=== PATIENT | female | born 1990 | race Caucasian/White ===

== ENCOUNTER 2021-09-15 15:05 | Emergency (ER) | payer SELFPAY ==
[2021-09-15 15:07] VITALS: BP 125/82; PULSE 85; RESP 18; TEMP 36.6; O2SAT 96; BMI 30.9
--- NOTE | 2021-09-15 15:27 | EX.ED.VIS.HA ---
HPI History of Present Illness Chief Complaint: Headache Detail of Chief Complaint: Headache that started a week ago. Informant: patient Narrative Narrative: Patient presents to the emergency department chief complaint of a headache that start about a week ago. She states that initially was intermittent and would be worse if she bent over or coughed. Headache became more continuous over the last 5 days and describes it more to the back of her head. She rates it about 6 or 7 out of 10. She denies any nausea or vomiting or photophobia. Patient is 32 weeks and is G5, P4. She denies any falls or head injuries. She had cold symptoms a few weeks ago. Patient has been taking Tylenol and not getting any relief of her headache. Patient does have history of prior migraines but this feels different. Patient states that she recently returned from [place] as well and she noted that she had superficial blood clot in the right leg and her check writing machine operator prescribed some herbal enzymes to try to break it down. Today she had some intermittent twinges of chest discomfort. She denies any chest pain currently or shortness of breath currently. PFSH PFSH Medical History no medical history Home Medications 1 cp PO/SL DAILY 09/15/21 [History Last Taken Unknown] hydrocodone-acetaminophen 1 tab PO Q4H PRN PRN 2 Days #10 tablet 09/15/21 [Rx Last Taken Unknown] Allergy/AdvReac Type Severity Reaction Status Date / Time egg AdvReac Other Verified 09/15/21 15:13 Family History no significant family his Surgical History no surgical history Social History Smoking Status: Never smoker ROS ROS ED Constitutional Constitutional ED: Reports systems reviewed and no addt'l complaints, except as documented; Denies body ache(s), change in weight or chills Eyes Eyes: Denies acute decrease in peripheral vision, change in vision, double vision or loss of vision ENT ENT ED: Reports none; Denies ear pain, lip swelling, loss taste/smell, neck pain, otalgia or sore throat Cardiovascular Cardiovascular: Reports none and chest pain; Denies abdominal pain, chest pain with activity, leg edema, lightheadedness, palpitations, rapid heart rate or syncope Respiratory/Chest Respiratory/Chest: Reports none; Denies change in mental status, dry cough, dyspnea, hemoptysis, shortness of breath at rest or shortness of breath with exertion Gastrointestinal Gastrointestinal: Reports none; Denies abdominal pain, change in stool character, diarrhea, hematemesis, hematochezia, melena, rectal bleeding or vomiting Genitourinary Genitourinary ED: Reports none; Denies abdominal discomfort, anuria, dysuria, genital pain or polyuria Musculoskeletal Musculoskeletal: Reports none; Denies arthralgias, back pain, difficulty walking, extremity pain, muscle weakness or myalgias Integumentary Reports none; Denies abscess or rash Neurologic Neurologic: Reports none and headache(s); Denies abnormal gait, confusion, focal weakness, frequent falls, loss of vision, numbness, paresthesias, radicular pain, vertigo or weakness Psychiatric Psychiatric: Reports systems reviewed and no addt'l complaints, except as documented and none; Denies behavioral changes, confusion, difficulty concentrating, hallucinations, suicidal ideation, tactile hallucinations or visual hallucinations Endocrine Endocrinology: Denies none, cold intolerance, excessive sweating, fatigue or heat intolerance Hematologic/Lymphatic Hematologic/Lymphatic: Reports none; Denies anemia, easy bleeding or easy bruising Allergic/Immunologic Allergic/Immunologic ED: Denies as per HPI, none, lip swelling, mouth swelling, throat swelling, tongue swelling or hives EXAM Physical Exam Const Vital Signs: 09/15/21 15:07 09/15/21 17:14 Temperature 97.8 F Temperature Source Temporal Pulse Rate 85 79 Respiratory Rate 18 18 Blood Pressure 125/82 H Blood Pressure Mean 96 Pulse Ox 96 97 Oxygen Delivery Method Room Air Room Air Positive well nourished and well developed General Appearance ED: well developed and NAD HEENT Reports TM's clear and moist mucous membranes normocephalic and atraumatic; Negative for trauma or tenderness Tympanic Membrane ED: Yes TM's clear Eyes PERRL and EOMs intact bilaterally General Eye ED: Negative for pale conjunctiva or scleral icterus Neck no lymphadenopathy, supple and no JVD General: Negative for tenderness Chest Wall inspection of chest normal and palpation of chest normal Chest: Negative for tenderness Resp normal respiratory effort and clear to auscultation bilaterally Effort and Inspection: Negative for respiratory distress or pain with movement Auscultation: Negative for rhonchi, wheezes or diminished lung sounds Cardio regular rate, regular rhythm, S1 normal heart sound, S2 normal heart sound and no murmurs Peripheral Pulses: pulses 2+ throughout GI normal to inspection, nondistended, normoactive bowel sounds, soft to palpation, non-tender, non-distended and no masses Back/Spine no CVA tenderness and no thoracic nor lumbar tenderness Extremity normal to inspection General Extremety ED: Negative for edema General Extremity: Negative for edema Neuro oriented x3, CN's II-XII intact bilaterally, no sensory deficits noted and gait normal Neuro Narrative: Finger-nose and heel childs testing within normal limits, negative Romberg, negative pronator drift, fundi benign Sensorium / Orientation: awake, alert, oriented to person, oriented to place and oriented to time Motor Exam: strength 5/5 throughout and strength abnormal Psych mental status grossly normal Skin no rashes or lesions noted and no wounds MDM MDM MDM Narrative Medical decision making narrative: IV line established. Patient was given Reglan and Benadryl and had minimal relief of her headache with that. Patient had a CTA of the brain that did not show any significant findings and showed patent dural venous sinuses. Patient had a CT of the chest that was negative for PE. At this point she had a negative COVID test. Etiology of her headache unclear. No evidence for preeclampsia. I will have her come back tomorrow to get an ultrasound of her right lower extremity to rule out DVT. Patient will be given a prescription for few [place] for pain. She is advised to follow-up with her primary care physician within next 3 to 5 days. Lab Data Attestation: I reviewed the patient's lab results. Labs: Laboratory Results - last 24 hr 09/15/21 09/15/21 09/15/21 16:03 16:03 16:03 WBC 10.8 RBC 3.51 L Hgb 10.3 L Hct 30.8 L MCV 87.7 MCH 29.3 MCHC 33.4 RDW Std Deviation 40.6 RDW Coeff of Radha 12.7 Plt Count 276 MPV 9.8 Immature Gran % (Auto) 0.600 Neut % (Auto) 75.3 H Lymph % (Auto) 17.4 L Frontier % (Auto) 5.7 Eos % (Auto) 0.8 Baso % (Auto) 0.2 Absolute Neuts (auto) 8.1 H Absolute Lymphs (auto) 1.88 Nucleated RBC % 0 D-Dimer Quant (PE/DVT) 1.04 H* Sodium 138 Potassium 3.4 L Chloride 108 H Carbon Dioxide 25.0 Anion Gap 5 BUN 9 Creatinine 0.67 Estim Creat Clear Calc 104.09 Est GFR (MDRD) Af Amer 131 Est GFR (MDRD) Non-Af 108 BUN/Creatinine Ratio 13.5 Glucose 100 Calcium 8.7 Total Bilirubin 0.30 AST 10 L ALT 13 Alkaline Phosphatase 81 Total Protein 6.5 Albumin 2.4 L Globulin 4.1 Albumin/Globulin Ratio 0.6 L Urine Color Urine Clarity Urine pH Ur Specific Ruth Urine Protein Urine Glucose (UA) Urine Ketones Urine Occult Blood Urine Nitrite Urine Bilirubin Urine Urobilinogen Ur Leukocyte Esterase Urine RBC Urine WBC Ur Squamous Epith Cells Urine Bacteria Urine Mucus 09/15/21 16:03 WBC RBC Hgb Hct MCV MCH MCHC RDW Std Deviation RDW Coeff of Radha Plt Count MPV Immature Gran % (Auto) Neut % (Auto) Lymph % (Auto) Frontier % (Auto) Eos % (Auto) Baso % (Auto) Absolute Neuts (auto) Absolute Lymphs (auto) Nucleated RBC % D-Dimer Quant (PE/DVT) Sodium Potassium Chloride Carbon Dioxide Anion Gap BUN Creatinine Estim Creat Clear Calc Est GFR (MDRD) Af Amer Est GFR (MDRD) Non-Af BUN/Creatinine Ratio Glucose Calcium Total Bilirubin AST ALT Alkaline Phosphatase Total Protein Albumin Globulin Albumin/Globulin Ratio Urine Color Yellow Urine Clarity Clear Urine pH 6.0 Ur Specific Ruth 1.010 Urine Protein Negative Urine Glucose (UA) Normal Urine Ketones Negative Urine Occult Blood Negative Urine Nitrite Negative Urine Bilirubin Negative Urine Urobilinogen Normal Ur Leukocyte Esterase Negative Urine RBC 0 SEEN Urine WBC 0 SEEN Ur Squamous Epith Cells 0-5 SEEN Urine Bacteria RARE Urine Mucus 0 SEEN Radiography Diagnostic Testing: Clinical Impression(s) from Imaging Studies Chest CTA 09/15/21 16:42 IMPRESSION: 1. No pulmonary embolism 2. Normal chest. Electronically Signed: Delmi Edgar MD at 18:40 EST Tel , Service support , Head/Neck CTA 09/15/21 16:42 IMPRESSION: 1. Normal CT brain. Electronically Signed: Delmi Edgar MD at 18:38 EST Tel , Service support , Discharge Plan Triage Chief Complaint: Headache ED Provider: Amada Su Dx/Rx/DC Orders Clinical Impression: Headache, Leg swelling Instructions: ED Headache Unspecified, ED Peripheral Edema, Unilateral Prescriptions: New hydrocodone-acetaminophen [hydrocodone-acetaminophen] 1 TABLET tablet 1 tab PO Q4H PRN PRN (Reason: Pain) 2 Days Qty: 10 RF: 0 No Action 1 cp PO/SL DAILY RF: 0 Primary Care Provider: Mehran Edwards Referrals: Mehran Edwards DO [Primary Care Provider] - 3-5 Days Disposition Disposition: Home, Self Care
[2021-09-15] MEDS: DiphenhydrAMINE 50 MG/ML Syringe 25 MG IV (16:01)
[2021-09-15] MEDS: Metoclopramide 10 MG/2 ML Vial IV (16:01)
[2021-09-15] MEDS: 0.9% Normal Saline 1,000 ML 1000 ML IV (16:01)
[2021-09-15 16:09] LABS: Mucous, Urine 0 SEEN /hpf (<or=2+); Red Blood Cells-Urine 0 SEEN /hpf (0-5); White Blood Cells 0 SEEN /hpf (0-5)
[2021-09-15 16:12] LABS: Color, Urine Yellow (Yellow); Glucose, Dipstick Normal (Normal); Ketone-Dipstick Negative (Negative); Leukocyte Esterase-Dipstick Negative /ul (Negative); Nitrite-Dipstick Negative (Negative); Occult Blood-Urine Negative /ul (Negative); Protein-Dipstick Negative (Negative); Urine Bilirubin Dipstick Negative (Negative); Urine Clarity Clear (Clear); Urine Urobilinogen Normal (Normal)
[2021-09-15 16:16] LABS: Absolute Lymphocyte Count 1.88 X10^3/uL (0.83-4.51); Absolute Neutrophil Count 8.1 X10^3/uL (2.0-7.7); Basophil# 0.02 X10^3/uL; Basophil% 0.2 % (0-1); Eosinophil# 0.09 X10^3/uL; Eosinophils% 0.8 % (0-5); Hematocrit 30.8 % (37-47); Hemoglobin 10.3 g/dL (12.0-15.0); Lymphocyte # 1.88 X10^3/ul (0.83-4.51); Lymphocyte % 17.4 % (19-41); Mean Corp Hgb Conc 33.4 g/dL (32-36); Mean Corpuscular Hgb 29.3 pg (27.0-32.0); Mean Corpuscular Volume 87.7 fL (81-99); Mean Platelet Vol. 9.8 fl (6.2-12.0); Monocyte# 0.62 X10^3/uL; Monocyte% 5.7 % (0-10); NRBC Flagged by Analyzer 0 % (0-5); Neutrophil # 8.14 X10^3/uL (2.7-7.7); Neutrophil % 75.3 % (47-70); Platelet Count 276 K/mm3 (150-450); RBC Distribution Width CV 12.7 % (11.6-14.6); RBC Distribution Width SD 40.6 fl (35.1-43.9); Red Blood Count 3.51 M/mm3 (4.2-5.4); White Blood Count 10.8 K/mm3 (4.4-11.0)
[2021-09-15 16:19] LABS: Bacteria RARE /hpf (None Seen); Squamous Epithelial Cells - UA 0-5 SEEN /hpf (5-10)
[2021-09-15 16:27] LABS: ALB/GLOB Ratio 0.6 RATIO (0.9-2.4); AST(SGOT) 10 U/L (15-37); Alanine Aminotransfer ALT/SGPT 13 U/L (13-56); Albumin, Serum 2.4 g/dL (3.2-5.0); Alkaline Phosphatase 81 U/L (45-117); Anion Gap 5 (5-15); BUN 9 mg/dL (7-18); BUN/Creat Ratio 13.5 RATIO (10-20); Calcium,Total 8.7 mg/dL (8.5-10.1); Chloride 108 mmol/L (98-107); Creatinine, Serum 0.67 mg/dL (0.55-1.02); EST Glomerular Filtration Rate 108 mL/min (>60); Est Glom Filt Rate - Afr Amer 131 mL/min (>60); Estimated Creatinine Clearance 104.09 ml/min; Globulin 4.1 g/dL (2.2-4.2); Glucose 100 mg/dL (74-106); Potassium 3.4 mmol/L (3.5-5.1); Protein, Total 6.5 g/dL (6.4-8.2); Sodium Level 138 mmol/L (136-145)
[2021-09-15 16:39] LABS: D-Dimer Quantitative (DVT/PE) 1.04 FEU/ug/m (0.27-0.49)
--- NOTE | 2021-09-15 16:42 | CT_ITS ---
STUDY: CTA HEAD AND NECK WITH CONTRAST REASON FOR EXAM: Female, 31 years old. headache RADIATION DOSAGE (If Supplied By Facility): CTDIvol = ( 27.44 ) mGy, DLP = ( 2602.80 ) mGycm TECHNIQUE: CT angiography was performed with a multi-detector CT scanner. Data acquisition was obtained from the skull base through the vertex following intravenous administration of IV 100mL [id number]-370. MIP images were reconstructed from the axial data set. Post-processing of the angiographic images was performed, with multiplanar reformation and 3D reconstruction. Individualized dose optimization techniques were used for this CT. COMPARISON: No relevant priors. FINDINGS: Normal bilateral petrous carotid arteries. Normal right cavernous carotid artery with a normal supraclinoid bifurcation. Normal left cavernous carotid artery with a normal supraclinoid bifurcation. Normal right A1 segments of the anterior cerebral artery. Normal left A1 segments of the anterior cerebral artery. Normal intact anterior communicating artery (ACOM). Normal bilateral A2 segments of the anterior cerebral arteries. Normal right M1 and M2 segments of the middle cerebral arteries, with a normal M1 bifurcation. Normal left M1 and M2 segments of the middle cerebral arteries, with a normal M1 bifurcation. Posterior commuting arteries are small bilaterally. Normal bilateral vertebral arteries. Normal basilar artery with a normal basilar bifurcation. The visualized bilateral superior cerebellar (SCA) arteries are normal. Normal bilateral P1, P2 and visualized P3 segments of the posterior cerebral arteries. There is no demonstrated aneurysm of the [place] of [place]. There is no demonstrated abnormality of the visualized brain. AORTIC ARCH: Normal visualized aortic arch. Normal origins of the brachiocephalic, left common carotid, and left subclavian arteries. RIGHT CAROTID ARTERIES: Normal right common carotid artery (CCA). Normal right common carotid bulb. Normal origin of the right internal carotid (ICA) artery without a hemodynamically significant stenosis. Normal visualized cervical portion of the right internal carotid artery. Normal origin of the right external carotid artery (ECA). LEFT CAROTID ARTERIES: Normal left common carotid artery (CCA). Normal left common carotid bulb. Normal origin of the left internal carotid (ICA) artery without a hemodynamically significant stenosis. Normal visualized cervical portion of the left internal carotid artery. Normal origin of the left external carotid artery (ECA). VERTEBRAL ARTERIES: Normal bilateral vertebral arteries. Dural venous sinuses are patent. IMPRESSION: 1. Normal cervical arteries. 2. Normal intracranial arteries. 3. Patent dural venous sinuses. Electronically Signed: Delmi Edgar MD at 18:38 EST Tel , Service support , STUDY: CT BRAIN WITHOUT CONTRAST REASON FOR EXAM: Female, 31 years old. Headache shortness of breath RADIATION DOSAGE (If Supplied By Facility): CTDIvol = ( ) mGy, DLP = ( ) mGycm TECHNIQUE: Transaxial CT imaging of the brain was performed without administration of intravenous contrast material. Individualized dose optimization techniques were used for this CT. COMPARISON: No relevant priors. FINDINGS: Brain parenchyma is without focal lesions, mass effect, acute intracranial hemorrhage, extra parenchymal fluid collections, hydrocephalus or herniation. The skull is intact. CT/CTA Head AND Neck W/ Contrast IMPRESSION: 1. Normal CT brain. Electronically Signed: Delmi Edgar MD at 18:38 EST Tel , Service support ,
--- NOTE | 2021-09-15 16:42 | CT_ITS ---
STUDY: CTA CHEST REASON FOR EXAM: Female, 31 years old. Elevated d-dimer headache shortness of breath RADIATION DOSAGE (If Supplied By Facility): CTDIvol = ( 27.44 ) mGy, DLP = ( 2602.80 ) mGycm TECHNIQUE: The examination was performed with the intravenous administration of IV 100mL Isovue-370. Post-processing of the angiographic images was performed, with multiplanar reformation and 3D reconstruction. Individualized dose optimization techniques were used for this CT. COMPARISON: None. FINDINGS: There is no acute or chronic pulmonary embolism. Aorta is of normal caliber. Lungs are clear. There is no pneumothorax, pulmonary edema or pleural effusions. Mediastinal contents are normal with benign calcified lymph nodes. Osseous structures are intact. Abdominal structures are unremarkable. CT/CTA Chest W/WO Contrast IMPRESSION: 1. No pulmonary embolism 2. Normal chest. Electronically Signed: Delmi Edgar MD at 18:40 EST Tel , Service support ,
[2021-09-15 17:14] VITALS: PULSE 79; RESP 18; O2SAT 97
[2021-09-15] MEDS: 0.9% Normal Saline 1,000 ML 150 ML IV (17:29)
== END 2021-09-15 19:05 | disposition home or self-care (01) ==
PROVIDERS: Emergency Provider Emergency Medicine; PCP Family Medicine; Visit Provider Emergency Medicine
DX: O99.891 Other specified diseases and conditions complicating pregnancy (principal); R51.9 Headache, unspecified; M79.89 Other specified soft tissue disorders; Z3A.32 32 weeks gestation of pregnancy
CPT/HCPCS: 70496; 70498; 71275; 80053; 81001; 85025; 85379; 87426; 96361; 96374; 96375; 99283; J7030; Q9967

== ENCOUNTER → 2023-11-13 | Outpatient (CLI) | payer SELFPAY ==
--- NOTE | 2023-11-13 14:02 | VDLE_ITS ---
Reason For Study: Right leg pain RIGHT CFV is compressible, spontaneous, phasic, competent and demonstrates normal augmentation. FV is compressible, spontaneous, phasic, competent and demonstrates normal augmentation. POP V is compressible, spontaneous, phasic, competent and demonstrates normal augmentation. T/P Trunk is compressible. PTV is compressible. RT PerV is compressible. SFJ is competent and measures 0.58 x 0.71 cm. GSV proximal thigh measures 0.31 x 0.34 cm. GSV at knee measures 0.18 x 0.18 cm. GSV INCOMPETENT throughout for greater than 0.5 seconds. ASV mid thigh is INCOMPETENT for greater than 0.5 seconds and measures 0.22 x 0.23 cm. SSV proximal calf is competent and measures 0.16 x 0.17 cm. Varicose vein of concern at lateral mid calf extends up to lateral mid thigh. Procedure This is a venous duplex using B-mode, color flow and spectral Doppler. Exam performed in department. VL/Venous Duplex US, Unilateral Interpretation Summary Deep veins of the right lower extremity are patent and compressible segmentally . There is no evidence of right lower extremity deep vein thrombosis. The right great sapheno us vein appears patent and compressible segmentally. Positive for reflux in the right great saphenous vein, mid thigh accessory saph enous vein. Ordering Physician: Chandrika Garcia Referring Physician: Mehran Edwards Performed By: Renetta Barakat RVT
== END | disposition home or self-care (01) ==
PROVIDERS: PCP Family Medicine; Referring Provider Physician Assistant; Visit Provider Physician Assistant
DX: I83.90 Asymptomatic varicose veins of unspecified lower extremity (principal)
CPT/HCPCS: 93971

== ENCOUNTER 2024-06-29 11:11 | Day surgery (SDC) | payer SELFPAY ==
[2024-06-28 14:23] VITALS: BMI 29.3
[2024-06-29 12:07] LABS: Internal QC Validated? YES +Cl - CLEAR BKGD; Pregnancy, Serum, hCG Quali. NEGATIVE Negative
--- OUTSIDE RECORDS SUMMARY | 2024-06-29 12:12 | XMS RPT_ITS | CCD ---
Author Organization [facility] CliniSywv Care Team Providers Care Director Of The [facility] Name Role Phone HAMLET SCHAEFER Admitting Unavailable HAMLET SCHAEFER Primary Care Unavailable HAMLET SCHAEFER Attending Unavailable LINETTE ANTHONY Consulting Unavailable PROVIDER, UNKNOWN Consulting Unavailable ANAMARIA LR MD Attending Unavailable LINETTE ANTHONY Consulting Unavailable ANAMARIA LR MD Admitting Unavailable ANAMARIA LR MD Primary Care Unavailable PROVIDER, UNKNOWN Consulting Unavailable Problems Problem Classification Problem Date Documented Da te Episodic/Chronic Other upper respiratory infections (3 sources) Chronic maxillary sinusitis; Translations: [Chronic maxillary sinusitis] Onset: 11-05-2022 Chronic Results Test Name Value Interpretation Reference Range Facil ity CT SINUSES W/O CONTRASTon CT SINUSES W/O CONTRAST [address] [address] Patient: SOLOMON PRITCHETT Phone#: : 1990 Age: 32 Gender: F Pt. Type: Out Account: [id number] Location: 052 Ordering: HAMLET SCHAEFER Exam Date: 11/05/2022/8:12 Family Phys: Charge Code: 771243 Physician: Bollinger Order #: [id number] Dose#: 18.00 PROCEDURE: CT SINUSES WITHOUT CONTRAST COMPARISON: None. INDICATIONS: Chronic maxillary sinusitis. TECHNIQUE: CT images were created without intravenous contrast. All CT scans at this facility use dose modulation, iterative reconstruction, and/or weight based dosing when appropriate to reduce radiation dose to as low as reasonably achievable. IV CONTRAST: No IV contrast used,0ml TOTAL DOSE: 18.00 CTDIvol(mGy) FINDINGS: MAXILLARY SINUSES: Mild mucosal thickening in the maxillary sinuses. No fluid. Infundibula are patent. 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 ETHMOID SINUSES: Normal. No significant mucosal thickening or fluid. Fovea ethmoidali and lamina papyracea are symmetric and intact. SPHENOID SINUSES: Normal. No significant mucosal thickening or fluid. Sphenoethmoidal recesses are patent. No bony dehiscence. FRONTAL SINUSES: Normal. No significant mucosal thickening or fluid. Frontal recesses are patent. No anomalous frontal air cells. NASAL FOSSA: Rightward nasal septal deviation and rightward nasal septal spur. Left middle turbinate deyanira bullosa. No paradoxical turbinates are identified. OTHER: Normal. Limited views of the skull base and orbits are unremarkable. CONCLUSION: 1. Mild mucosal thickening maxillary sinuses 2. Bilateral Mel air cells 3. Rightward nasal septal deviation and small rightward nasal septal spur 4. 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 Type: Out Account: [id number] [place] [facility] [place] Ordering: HAMLET SCHAEFER Exam Date: 11/05/2022/8:12 Family Phys: Charge Code: [id number] Physician: Bollinger Order #: [id number] Dose#: 18.00 Dictated by: Talisha Freeman MD on 11/05/2022 at 12:45 Approved by: Talisha Freeman MD on 11/05/2022 at 12:58 Normal [facility] URINALYSISon 08-13-2022 Amorphous NONE Normal [facility] Comment on above: Performed By: #### 2 84032 #### [facility],[address] [place] [address] 35176 Bacteria TRACE Normal [facility] Comment on above: Performed By: #### 2 86291 #### [facility],[address] [place] [address] 84468 Bilirubin Ql (U) Negative Normal NORMAL: NEGATIVE [facility] Comment on above: Performed By: #### 2 93627 #### [facility],[address] [place] [address] 13271 Casts NONE Normal [facility] Comment on above: Performed By: #### 2 64548 #### [facility],[address] [place] [address] 17952 Clarity (U) CLEAR Normal NORMAL: CLEAR [facility] Comment on above: Performed By: #### 2 32986 #### [facility],[address] [place] [address] 89515 Color (U) p.yel Normal NORMAL: YELLOW [facility] Comment on above: Performed By: #### 2 36755 #### [facility],[address] [place] [address] 28245 Crystals LM Nom (Urine sed) NONE Normal [facility] Comment on above: Performed By: #### 2 18278 #### [facility],[address] [place] [address] 18420 Epi Cells OCC Normal [facility] Comment on above: Performed By: #### 2 47009 #### [facility],[address] [place] [address]102 Glucose Ql (U) NORM Normal NORMAL: NORMAL [facility] Comment on above: Performed By: #### 2 70276 #### [facility],[address] [place] [address] 25527 Hemoglobin Ql (U) 10 Abnormal NORMAL: NEGATIVE [facility] Comment on above: Performed By: #### 2 66622 #### [facility],[address] [place] [address] 14253 Ketone Negative Normal NORMAL: NEGATIVE [facility] Comment on above: Performed By: #### 2 48923 #### [facility],[address] [place] [address] 82585 Leukocytes 100 Abnormal NORMAL: NEGATIVE [facility] Comment on above: Performed By: #### 2 90455 #### [facility],[address] [place] [address] 80020 Mucous NONE Normal [facility] Comment on above: Performed By: #### 2 43970 #### [facility],[address] [place] [address] Nitrite Ql (U) Negative Normal NORMAL: NEGATIVE [facility] Comment on above: Performed By: #### 2 65480 #### [facility],[address] [place] [address] pH (U) 5 [pH] Normal NORMAL: 5.0-8.0 [facility] Comment on above: Performed By: #### 2 78307 #### [facility],[address] [place] [address] Protein Ql (U) 30 Abnormal NORMAL: NEGATIVE [facility] Comment on above: Performed By: #### 2 09756 #### [facility],[address] [place] [address] Rbc NONE Normal 0-3/hpf [facility] Comment on above: Performed By: #### 2 66504 #### [facility],[address] [place] [address] Sp Caroline 1.020 Normal NORMAL: 1.010-1.030 [facility] Comment on above: Performed By: #### 2 85903 #### [facility],[address] [place] [address] Specimen Type Clean catch Normal [facility] Comment on above: Performed By: #### 2 95048 #### [facility],[address] [place] [address] Urinalysis dipstick W Reflex Microscopic panel (U) SEE BELOW Normal [facility] Comment on above: Result Comment: MICR OSCOPIC Performed By: #### 2 31673 #### [facility],[address] [place], [place] [id number] Urobilinog NORM Normal NORMAL: NORMAL [facility] Comment on above: Performed By: #### 2 58371 #### [facility],[address] [place] [address] 21865 Wbc 6-10 Normal 0-5/hpf [facility] Comment on above: Performed By: #### 2 25318 #### [facility],[address] [place] [address] 72825 Yeast NONE Normal [facility] Comment on above: Performed By: #### 2 32467 #### [facility],[address] [place] [address] 53760 URINE CULTURE [CCL]on 2021 Bacteria identified Cx Nom (U) URCUL See Results Below See Below CULTURE, URINE ESCHERICHIA COLI >=100,000 CFU/ml Escherichia coli CLSI breakpoints for therapy of uncomplicated UTIs due to E. coli, K. pneumoniae ORGANISM: ESCHERICHIA COLI ANTIBIOTIC MISBAH DILUTN MISBAH INTERP Ampicillin >=32 Resistant Ampicillin/Sulbact >=32 Resistant Cefazolin 16 Susceptible Cefepime <=1 Susceptible Ceftriaxone <=1 Susceptible Ciprofloxacin <=0.25 Susceptible Ertapenem <=0.5 Susceptible Gentamicin <=1 Susceptible Meropenem <=0.25 Susceptible Nitrofurantoin <=16 Susceptible Piperacillin/Tazobac <=4 Susceptible Tobramycin <=1 Susceptible Trimeth sulfameth <=20 Susceptible This test was developed and its performance characteristics determined by the [facility] [place] [facility] It has not been cleared or approved by the FDA. [facility] is regulated under CLIA as qualified to perform high-complexity testing. This test is used for clinical purposes. It should not be regarded as investigational or for research. SOURCE: URINE [facility] [address] [place] [address] Srinath Conklin III, M.D. [id number] Normal [facility] Comment on above: Performed By: #### 2 60172 #### [address] [address] CBC (INCLUDES DIFF/PLT)on Basophils (Bld) [#/Vol] 0.008 10*3/uL Normal 0-200 [facility] Comment on above: Performed By: #### 6 399 #### [facility] [place] [address] Machine Joint Cutter: Joseph Barnard MD Basophils/100 WBC (Bld) 0.1 % Normal [facility] Comment on above: Performed By: #### 6 399 #### [facility] [place] [address] Machine Joint Cutter: Joseph Barnard MD COMMENT(S) Normal [facility] Comment on above: Result Comment: Revi ew of peripheral smear confirms automated results. Performed By: #### 6 399 #### [facility] [place] [address] Machine Joint Cutter: Joseph Barnard MD Eosinophils (Bld) [#/Vol] 0.108 10*3/uL Normal 15-500 [facility] Comment on above: Performed By: #### 6 399 #### [facility] [place] [address] Machine Joint Cutter: Joseph Barnard MD Eosinophils/100 WBC (Bld) 1.4 % Normal [facility] Comment on above: Performed By: #### 6 399 #### [facility] [place] [address] Machine Joint Cutter: Joseph Barnard MD Erythrocyte distribution width (RBC) [Ratio] 13.2 % Normal 11.0-15.0 [facility] Comment on above: Performed By: #### 6 399 #### [facility] [place] [address] Machine Joint Cutter: Joseph Barnard MD Hematocrit (Bld) [Volume fraction] 33.5 % Low 35.0-45.0 [facility] Comment on above: Performed By: #### 6 399 #### [facility] [place] [address] Machine Joint Cutter: Joseph Barnard MD Hemoglobin (Bld) [Mass/Vol] 10.6 g/dL Low 11.7-15.5 [facility] Comment on above: Performed By: #### 6 399 #### [facility] [place] [address] Machine Joint Cutter: Joseph Barnard MD Lymphocytes (Bld) [#/Vol] 1.663 10*3/uL Normal 850-3900 [facility] Comment on above: Performed By: #### 6 399 #### [facility] [place] [address] Machine Joint Cutter: Joseph Barnard MD Lymphocytes/100 WBC (Bld) 21.6 % Normal [facility] Comment on above: Performed By: #### 6 399 #### [facility] [place] [address] Machine Joint Cutter: Joseph Barnard MD MCH (RBC) [Entitic mass] 28.3 pg Normal 27.0-33.0 [facility] Comment on above: Performed By: #### 6 399 #### [facility] [place] [address] Machine Joint Cutter: Joseph Barnard MD MCHC (RBC) [Mass/Vol] 31.6 g/dL Low 32.0-36.0 [facility] Comment on above: Performed By: #### 6 399 #### [facility] [place] [address] Machine Joint Cutter: Joseph Barnard MD MCV (RBC) [Entitic vol] 89.6 fL Normal 80.0-100.0 [facility] Comment on above: Performed By: #### 6 399 #### [facility] [place] [address] Machine Joint Cutter: Joseph Barnard MD Monocytes (Bld) [#/Vol] 0.347 10*3/uL Normal 200-950 [facility] Comment on above: Performed By: #### 6 399 #### [facility] [place] [address] Machine Joint Cutter: Joseph Barnard MD Monocytes/100 WBC (Bld) 4.5 % Normal [facility] Comment on above: Performed By: #### 6 399 #### [facility] [place] [address] Machine Joint Cutter: Joseph Barnard MD Neutrophils (Bld) [#/Vol] 5.575 10*3/uL Normal 0501-5212 [facility] Comment on above: Performed By: #### 6 399 #### [facility] of [address], [address] [place] [address] Machine Joint Cutter: Joseph Barnard MD Neutrophils/100 WBC (Bld) 72.4 % Normal [facility] Comment on above: Performed By: #### 6 399 #### [facility] [place] [address] Machine Joint Cutter: Joseph Barnard MD Platelet mean volume (Bld) [Entitic vol] 10.3 fL Normal 7.5-12.5 [facility] Comment on above: Performed By: #### 6 399 #### [facility] [place] [address] Machine Joint Cutter: Joseph Barnard MD Platelets (Bld) [#/Vol] 302 10*3/uL Normal 140-400 [facility] Comment on above: Performed By: #### 6 399 #### [facility] of [address], [address] [place] [address] Machine Joint Cutter: Joseph Barnard MD RBC (Bld) [#/Vol] 3.74 10*6/uL Low 3.80-5.10 [facility] Comment on above: Performed By: #### 6 399 #### [facility] [place] [address] Machine Joint Cutter: Joseph Barnard MD WBC (Bld) [#/Vol] 7.7 10*3/uL Normal 3.8-10.8 [facility] Comment on above: Performed By: #### 6 399 #### [facility] of [address], [address] [place], [place] [address] Machine Joint Cutter: Joseph Barnard MD Encounters Encounter Date Encounter Type Care Provider Facility Start: 11-05-2022 End: 11-05-2022 ambulatory HAMLET SCHAEFER [facility] Start: 08-13-2022 End: 08-13-2022 ambulatory ANAMARIA LR [facility] Procedures Date Procedure Procedure Detail Performing Clinician Start: 08-13-2022 Urinalysis HAMLET GUY Comment on above: Result Comment: URIN ALYSIS Performed By: #### 2 61415 #### [facility],[address] [place] [address] Payers Date Payer Category Payer Unknown [id number] Unknown Summary Purpose Family History No Family History Records FoundNo Family History Records Found Advance Directives No Advanced Directives Records FoundNo Advanced Directives Records Found Additional Source Comments INFORMATION SOURCE (unrecogn ized section and content) DATE CREATED AUTHOR 07/07/2021 [facility] DATE CREATED AUTHOR AUTHOR'S ORGANIZ ATION 11/06/2022 [facility] FOR RECORDS PERTAINING TO PATIENTS WHO ARE OR HAVE BEEN ENROLLED IN A CHEMICAL DEPENDENCY/SUBSTANCEABUSE PROGRAM, SOME INFORMATION MAY BE OMITTED. This clinical summary was aggregated from multiple sources. Caution should be exercised in using it in the provision of clinical care. This summary normalizes information from multiple sources, and as a consequence, information in this document may materially change the coding, format and clinical context of patient data. In addition, data may be omitted in some cases. CLINICAL DECISIONS SHOULD BE BASED ON THE PRIMARY CLINICAL RECORDS. [facility] [employer] provides no warranty or guarantee of the accuracy or completeness of information in this document.
--- NOTE | 2024-06-29 12:29 | PCM.HP.STD ---
HPI - General HPI Narrative SOLOMON PRITCHETT, is a 34 F who presents for symptomatic varicose veins. Recall that she has bothersome varicosities on her RLE. In general, she has mild intermittent pain but she has significant pain and recurrent phlebitis during . She has had 5 children and these symptoms have worsened with each one. She is interested in potentially pursuing treatment prior to further pregnancies. She has worn compression with her pregnancies but this did not seem to help prevent the phlebitis episodes. 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 10/27/23 Unknown History Thyroid) Allergy/AdvReac Type Severity Reaction Status Date / Time egg AdvReac Other Verified 03/08/24 16:13 Family History Other CVA (cerebral vascular accident) Cancer Diabetes Heart disease Hypertension Thyroid disorder Social History Smoking Status: Never smoker ROS Constitutional Constitutional: Denies chills, fever(s), frequent falls, lethargy or weakness Eyes Eyes: Denies blind spots, change in vision or loss of vision ENT HEENT: Denies bleeding gums, hoarseness or sore throat Cardiovascular Cardiovascular: Denies abdominal pain, bluish discoloration of hand/feet, chest pain with activity, claudication, cold extremities, cyanosis, dyspnea on exertion, erythema on extremities, irregular heart rhythm, leg edema, leg ulcers, numbness in extremities or weakness in extremities Respiratory/Chest Respiratory/Chest: Denies cough, excessive phlegm production, shortness of breath at rest, shortness of breath with exertion or wheezing Gastrointestinal Gastrointestinal: Denies anorexia, change in stool character, constipation, diarrhea, melena or rectal bleeding Genitourinary Genitourinary: Denies dysuria or hematuria Musculoskeletal Musculoskeletal: Denies abnormal gait Integumentary Integumentary: Reports other Details: ; Denies erythema, non-healing lesions or wounds Neurologic Neurologic: Denies abnormal speech, focal weakness, headache(s), loss of vision, numbness, paresthesias or sensory deficit Hematologic/Lymphatic Hematologic/Lymphatic: Denies easy bleeding, easy bruising or lymphadenopathy Vital Signs Vital Signs Vital Signs: Weight Weight: 171 lb Body Mass Index (BMI) 29.3 Physical Exam Const alert, oriented x3, no apparent distress and healthy appearing General Appearance: cooperative; Negative for combative or lethargic Orientation / Consciousness: awake Exam Limitations: no limitations HEENT Head and Scalp: normocephalic and atraumatic Eyes EOMs intact bilaterally General Eye: normal appearance of both eyes Neck full ROM, no lymphadenopathy and thyroid normal General: trachea midline Thyroid: thyroid normal Resp normal respiratory effort and no use of accessory muscles Effort and Inspection: Negative for labored, stridor or audible wheezes Cardio regular rate and regular rhythm Back/Spine Cervical Spine: cervical ROM normal Extremity full ROM, normal capillary refill and no clubbing, cyanosis or edema Skin no rashes or lesions noted and no wounds Neuro oriented x3, CN's II-XII intact bilaterally, no focal motor deficits and no sensory deficits noted Psych thought process normal, cooperative, affect normal, speech normal and activity/motor behavior normal Results Lab / Micro Data Labs: Laboratory Results - last 24 hr 06/29/24 11:50: Serum , Qual NEGATIVE Assessment & Plan Assessment/Plan (1) Varicose vein of leg: QUALIFIERS: Varicose vein complication: pain Laterality: right Qualified Code(s): I83.811 - Varicose veins of right lower extremity with pain PLAN: -right GSV ablation
--- NOTE | 2024-06-29 14:53 | OP.PCM_ITS ---
Operative Report (Standard) Operative Information Surgery/Procedure Performed: Radiofrequency ablation of the right great saph enous vein Surgeon: Issa Gonzalez Date of Procedure: 06/29/24 Procedure Start Time: 13:00 Procedure Stop Time: 13:30 Pre-Operative Diagnosis: Varicose veins with pain in the right lower extremity Post-Operative Diagnosis: Same Select all DRAINS/GRAFTS/IMPLANTS that apply: None Type of Anesthesia: Local and Sedation,Conscious Estimated Blood Loss: 1 Specimen collected: No Description of surgery: HPI: Patient is a 34-year-old female with right lower extremity painful varicose veins with multiple episodes of superficial phlebitis during her pregnancies. These been refractory to compression therapy and she has intention of potential further pregnancies and she was to avoid any of these thrombotic events. She was found to have reflux throughout her right great saphenous vein so she presents now for radiofrequency ablation. Description of procedure: Upon obtaining form consent and verification correct patient procedure site patient was taken to the Sales Team Member where she was positioned prepped and draped in usual sterile fashion. Timeouts performed and Sedation ministered Versed and fentanyl. Ultrasound was used to evaluate the great saphenous vein throughout found to be continuous from the saphenofemoral junction down to the proximal calf and an appropriate depth for treatment. The vessel was small in caliber though that appeared to be accessible. Skin overlying the great saphenous vein in the superior aspect of the calf was anesthetized 1% lidocaine and the vessel accessed with a micropuncture needle wire. This then exchanged for 7 Albanian ablation sheath through which the radiofrequency ablation probe was advanced and positioned 3 cm inferior to the saphenofemoral junction. Tumescent solution was then instilled along the entirety of the length of the intended treatment zone and the ablation device activated sequentially from the proximal thigh just distal to the saphenofemoral junction to the proximal calf. After completing the treatment zone the sheath and catheter withdrawn and manual pressure held the access site until satisfactory stasis was noted. The common femoral vein was then assessed with ultrasound and found to be compressible with no evidence of thrombus. Dry dressing was then applied followed by an Ankit wrap and the patient was taken recovery room prior to discharge to home. Surgical Findings: Successful ablation of the great saphenous vein with no evidence of common femoral thrombus Biodiesel Operations Manager general merchandise manager: No Complications Complications: No
== END 2024-06-29 14:20 | disposition home or self-care (01) ==
PROVIDERS: PCP Family Medicine; Referring Provider Surgery Trauma Surgery; Visit Provider Surgery Trauma Surgery
DX: I83.811 Varicose veins of right lower extremity with pain (principal); I80.00 Phlebitis and thrombophlebitis of superficial vessels of unspecified lower extremity
CPT/HCPCS: 36475; 84703; 99152; 99153; C1888; C1894; J7030; J7040

== ENCOUNTER → 2024-07-04 | Outpatient (CLI) | payer SELFPAY ==
[2024-06-28 07:50] VITALS: BMI 29.3
--- NOTE | 2024-07-04 14:21 | VDLE_ITS ---
Reason For Study: S/P Rt GSV Ablation RIGHT LEFT Rt GSV appears hyperechoic and FV is compressible, spontaneous, phasic, NONCOMPRESSIBLE with no flow visualized in competent and demonstrates normal color or pulsed wave doppler from SFJ to prox augmentation. calf. Finding is consistent with recent vein ablation procedure. GSV is patent and compressible from mid calf to ankle. CFV is compressible, spontaneous, phasic, competent and demonstrates normal augmentation. FV is compressible, spontaneous, phasic, competent and demonstrates normal augmentation. POP V is compressible, spontaneous, phasic, competent and demonstrates normal augmentation. T/P Trunk is compressible. PTV is compressible. RT PerV is compressible. Procedure This is a venous duplex using B-mode, color flow and spectral Doppler. Exam performed in department. The exam was diagnostic. VL/Venous Duplex US, Unilateral Interpretation Summary Right great saphenous vein occluded consistent with recent ablation Deep veins of the right lower extremity are patent and compressible segmentally . There is no evidence of right lower extremity deep vein thrombosis. Ordering Physician: Chandrika Garcia Referring Physician: Mehran Edwards Performed By: Jack Paredes RVT
--- OUTSIDE RECORDS SUMMARY | 2024-07-04 18:28 | XMS RPT_ITS | CCD ---
Author Organization [facility] Care Team Providers Care Manager Sterile Processing Name Role Phone HAMLET SCHAEFER Admitting Unavailable [...] SINUSES W/O CONTRASTon CT SINUSES W/O CONTRAST [address] [address] Patient: SOLOMON PRITCHETT Phone#: : [phone] Age: 32 Gender: F Pt. Type: Out Account: [id number] Location: 052 Ordering: HAMLET SCHAEFER Exam Date: 11/05/2022/8:12 Family Phys: Charge Code: 088444 Physician: [place] Order #: [id number] Dose#: 18.00 PROCEDURE: CT SINUSES WITHOUT CONTRAST [...] 32 Gender: F Pt. Type: Out Account: [id number] Location: [facility] Ordering: HAMLET SCHAEFER Exam Date: 11/05/2022/8:12 Family Phys: Charge Code: 677113 Physician: [place] Order #: [id number] Dose#: 18.00 Dictated by: Talisha Freeman MD on 11/05/2022 at 12:45 Approved by: Talisha Freeman MD on 11/05/2022 at 12:58 Normal [facility] URINALYSISon 08-13-2022 Amorphous NONE Normal [facility] Comment on above: Performed By: #### 2 02224 #### [facility],[address] [place] [address] 29488 Bacteria TRACE Normal [facility] Comment on above: Performed By: #### 2 47192 #### [facility],[address] [place] [address] 47707 Bilirubin Ql (U) Negative Normal NORMAL: NEGATIVE [facility] Comment on above: Performed By: #### 2 16534 #### [facility],[address] [place] [address] 14756 Casts NONE Normal [facility] Comment on above: Performed By: #### 2 68734 #### [facility],[address] [place] [address] 35440 Clarity (U) CLEAR Normal NORMAL: CLEAR [facility] Comment on above: Performed By: #### 2 89759 #### [facility],[address] [place] [address] 15464 Color (U) p.yel Normal NORMAL: YELLOW [facility] Comment on above: Performed By: #### 2 12553 #### [facility],[address] [place] [address] 73922 Crystals LM Nom (Urine sed) NONE Normal [facility] Comment on above: Performed By: #### 2 61682 #### [facility],[address] [place] [address] 31587 Epi Cells OCC Normal [facility] Comment on above: Performed By: #### 2 83726 #### [facility],[address] [place] [address] 59373 Glucose Ql (U) NORM Normal NORMAL: NORMAL [facility] Comment on above: Performed By: #### 2 99842 #### [facility],[address] [place] [address] 47126 Hemoglobin Ql (U) 10 Abnormal NORMAL: NEGATIVE [facility] Comment on above: Performed By: #### 2 07016 #### [facility],[address] [place] [address] 03370 Ketone Negative Normal NORMAL: NEGATIVE [facility] Comment on above: Performed By: #### 2 47693 #### [facility],[address] [place] [address] 62597 Leukocytes 100 Abnormal NORMAL: NEGATIVE [facility] Comment on above: Performed By: #### 2 57671 #### [facility],[address] [place] [address] 52350 Mucous NONE Normal [facility] Comment on above: Performed By: #### 2 25380 #### [facility],[address] [place] [address] Nitrite Ql (U) Negative Normal NORMAL: NEGATIVE [facility] Comment on above: Performed By: #### 2 15439 #### [facility],[address] [place] [address] pH (U) 5 [pH] Normal NORMAL: 5.0-8.0 [facility] Comment on above: Performed By: #### 2 49638 #### [facility],[address] [place] [address] Protein Ql (U) 30 Abnormal NORMAL: NEGATIVE [facility] Comment on above: Performed By: #### 2 22007 #### [facility],[address] [place] [address] Rbc NONE Normal 0-3/hpf [facility] Comment on above: Performed By: #### 2 36682 #### [facility],[address] [place] [address] Sp [place] 1.020 Normal NORMAL: 1.010-1.030 [facility] Comment on above: Performed By: #### 2 61049 #### [facility],[address] [place] [address] Specimen Type Clean catch Normal [facility] Comment on above: Performed By: #### 2 93848 #### [facility],[address] [place] [address] Urinalysis dipstick W Reflex Microscopic panel (U) SEE BELOW Normal [facility] Comment on above: Result Comment: MICR OSCOPIC Performed By: #### 2 03825 #### [facility],[address] [place], [place] [address] Urobilinog NORM Normal NORMAL: NORMAL [facility] Comment on above: Performed By: #### 2 31842 #### [facility],[address] [place] [address]1514 Wbc 6-10 Normal 0-5/hpf [facility] Comment on above: Performed By: #### 2 32643 #### [facility],[address] [place] [address] 66437 Yeast NONE Normal [facility] Comment on above: Performed By: #### 2 81274 #### [facility],[address] [place] [address] 64323 URINE CULTURE [CCL]on 2021 Bacteria identified Cx [...] and its performance characteristics determined by the [facility] [place] ([facility]). It has not been cleared or approved by the FDA. [facility] is regulated under CLIA as qualified to perform high-complexity testing. This test is used for clinical purposes. It should not be regarded as investigational or for research. SOURCE: URINE [facility] [address] [place] [address] Srinath Conklin III, M.D. [id number] Normal [facility] Comment on above: Performed By: #### 2 06636 #### [address] [address] CBC (INCLUDES DIFF/PLT)on Basophils (Bld) [#/Vol] 0.008 10*3/uL Normal 0-200 [facility] Comment on above: Performed By: #### 6 399 #### [facility] of [place] [address] Lab Asst: Joseph Barnard MD Basophils/100 WBC (Bld) 0.1 % Normal [facility] Comment on above: Performed By: #### 6 399 #### [facility] [place] [address] Lab Asst: Joseph Barnard MD COMMENT(S) Normal [facility] Comment on above: Result Comment: Revi ew of peripheral smear confirms automated results. Performed By: #### 6 399 #### [facility] [place] [address] Lab Asst: Joseph Banrard MD Eosinophils (Bld) [#/Vol] 0.108 10*3/uL Normal 15-500 [facility] Comment on above: Performed By: #### 6 399 #### [facility] [place] [address] Lab Asst: Joseph Barnard MD Eosinophils/100 WBC (Bld) 1.4 % Normal [facility] Comment on above: Performed By: #### 6 399 #### [facility] [place] [address] Lab Asst: Joseph Barnard MD Erythrocyte distribution width (RBC) [Ratio] 13.2 % Normal 11.0-15.0 [facility] Comment on above: Performed By: #### 6 399 #### [facility] [place] [address] Lab Asst: Joseph Barnard MD Hematocrit (Bld) [Volume fraction] 33.5 % Low 35.0-45.0 [facility] Comment on above: Performed By: #### 6 399 #### [facility] [place] [address] Lab Asst: Joseph Barnard MD Hemoglobin (Bld) [Mass/Vol] 10.6 g/dL Low 11.7-15.5 [facility] Comment on above: Performed By: #### 6 399 #### [facility] [place] [address] Lab Asst: Joseph Barnard MD Lymphocytes (Bld) [#/Vol] 1.663 10*3/uL Normal 850-3900 [facility] Comment on above: Performed By: #### 6 399 #### [facility] [place] [address] Lab Asst: Joseph Barnard MD Lymphocytes/100 WBC (Bld) 21.6 % Normal [facility] Comment on above: Performed By: #### 6 399 #### [facility] [place] [address] Lab Asst: Joseph Barnard MD MCH (RBC) [Entitic mass] 28.3 pg Normal 27.0-33.0 [facility] Comment on above: Performed By: #### 6 399 #### [facility] [place] [address] Lab Asst: Joseph Barnard MD MCHC (RBC) [Mass/Vol] 31.6 g/dL Low 32.0-36.0 [facility] Comment on above: Performed By: #### 6 399 #### [facility] [place] [address] Lab Asst: Joseph Barnard MD MCV (RBC) [Entitic vol] 89.6 fL Normal 80.0-100.0 [facility] Comment on above: Performed By: #### 6 399 #### [facility] [place] [address] Lab Asst: Joseph Barnard MD Monocytes (Bld) [#/Vol] 0.347 10*3/uL Normal 200-950 [facility] Comment on above: Performed By: #### 6 399 #### [facility] [place] [address] Lab Asst: Joseph Barnard MD Monocytes/100 WBC (Bld) 4.5 % Normal [facility] Comment on above: Performed By: #### 6 399 #### [facility] [place] [address] Lab Asst: Joseph Barnard MD Neutrophils (Bld) [#/Vol] 5.575 10*3/uL Normal 3579-4847 [facility] Comment on above: Performed By: #### 6 399 #### [facility] of [address], [address] [place] [address] Lab Asst: Joseph Barnard MD Neutrophils/100 WBC (Bld) 72.4 % Normal [facility] Comment on above: Performed By: #### 6 399 #### [facility] [place] [address] Lab Asst: Joseph Barnard MD Platelet mean volume (Bld) [Entitic vol] 10.3 fL Normal 7.5-12.5 [facility] Comment on above: Performed By: #### 6 399 #### [facility] [place] [address] Lab Asst: Joseph Barnard MD Platelets (Bld) [#/Vol] 302 10*3/uL Normal 140-400 [facility] Comment on above: Performed By: #### 6 399 #### [facility] of [address], [address] [place] [address] Lab Asst: Joseph Barnard MD RBC (Bld) [#/Vol] 3.74 10*6/uL Low 3.80-5.10 [facility] Comment on above: Performed By: #### 6 399 #### [facility] [place] [address] Lab Asst: Joseph Barnard MD WBC (Bld) [#/Vol] 7.7 10*3/uL Normal 3.8-10.8 [facility] Comment on above: Performed By: #### 6 399 #### [facility] of [address], [address] [place], [place] [address] Lab Asst: Joseph Barnard MD Encounters Encounter Date Encounter Type Care Provider Facility Start: 11-05-2022 End: 11-05-2022 ambulatory HAMLET SCHAEFER [facility] Start: 08-13-2022 End: 08-13-2022 ambulatory [facility] Procedures Date Procedure Procedure Detail Performing Clinician Start: 08-13-2022 Urinalysis HAMLET GUY Comment on above: Result Comment: URIN ALYSIS Performed By: #### 2 [id number] #### [facility],[address] [place] [address] Payers Date Payer Category Payer Unknown [id number] Unknown Summary Purpose Family History No Family History Records FoundNo Family History Records Found Advance Directives No Advanced Directives Records FoundNo Advanced Directives Records Found Additional Source Comments INFORMATION SOURCE (unrecogn ized section and content) DATE CREATED AUTHOR 07/07/2021 [facility] DATE CREATED AUTHOR AUTHOR'S ORGANIZ ATION 11/06/2022 [facility] FOR RECORDS PERTAINING TO PATIENTS WHO [...] BE BASED ON THE PRIMARY CLINICAL RECORDS. [facility] [employer] provides no warranty or guarantee of the accuracy or completeness of information in this document.
== END | disposition home or self-care (01) ==
LOC: CVS 14:20
PROVIDERS: PCP Family Medicine; Referring Provider Surgery Trauma Surgery; Visit Provider Surgery Trauma Surgery
DX: Z48.812 Encounter for surgical aftercare following surgery on the circulatory system (principal); I83.90 Asymptomatic varicose veins of unspecified lower extremity; M79.604 Pain in right leg
CPT/HCPCS: 93971